=== PATIENT | male | born 1950 | race Caucasian/White ===

== ENCOUNTER 2017-03-28 10:57 | Day surgery (SDC) | payer MEDICARE, BC ==
[~2017-03-28 10:57] MED LIST: Lactated Ringers 1,000 ML IV SCH
[2017-03-28] MEDS ORDERED: Propofol 200 MG/20 ML SDV ONE (11:35)
[2017-03-28] MEDS ORDERED: fentaNYL 100 MCG/2 ML SDV ONE (11:35)
--- NOTE | 2017-03-28 14:20 | OR ---
DATE OF SURGERY: 03/28/2017 REFERRING PROVIDER: RAE Rossi PRE-OPERATIVE DIAGNOSES: Screening colonoscopy. The patient's last colonoscopy was about 10 years ago. There is no known family history of colon cancer or colon polyps. POST-OPERATIVE DIAGNOSES: 1. 2mm polyp at 70 cm, removed with cold forceps. PROCEDURE: Colonoscopy with polypectomy x1 using cold forceps. SURGEON: Baljit Merrill M.D. ANESTHESIA: Monitored anesthesia care. BOWEL PREP: Good. Refugio is a 66-year-old male who was brought to the endoscopy suite after discussing risks and benefits of the procedure. Informed consent was obtained for conscious sedation and colonoscopy with or without biopsy and/or polypectomy. We also discussed possibility of missed lesions. Pre-procedure exam was unremarkable. IV, oxygen, and monitors were placed. The patient was placed in the left lateral decubitus position. Sedation was administered and a digital rectal exam was performed which was unremarkable except for some mild enlargement of the prostate. No palpable nodules noted. Colonoscope was passed into the rectum and slowly advanced all the way to the cecum. Cecum was viewed and photographed. The colonoscope was slowly withdrawn and the mucosa was closed observed in a direct circumferential manner. The ascending colon was unremarkable. The transverse colon was remarkable for 2 mm polyp at 70 cm, removed with cold forceps. The descending colon was unremarkable. The sigmoid colon was unremarkable. Retroflexion was performed and rectal mucosa was unremarkable. Scope was removed. The patient tolerated the procedure well. The patient was monitored until that baseline status. Discharge instructions were reviewed and the patient was discharged in good condition. COMPLICATIONS: None. TOTAL TIME: 18 minutes. ESTIMATED BLOOD LOSS: Less than 1 mL. RECOMMENDATIONS/FOLLOW-UP: We will await results of pathology report to determine ideal followup interval. I would like to kindly thank REA Rossi, for this referral. DMB: 03/28/2017 13:18:47 MODL: 03/28/2017 14:11:04 /[id number]
== END 2017-03-28 14:05 | disposition home or self-care (01) ==
LOC: VM.SDS 10:57
PROVIDERS: ATTEND Family Medicine
DX: Z12.11 Encounter for screening for malignant neoplasm of colon (principal); D12.3 Benign neoplasm of transverse colon; N40.0 Benign prostatic hyperplasia without lower urinary tract symptoms; E78.5 Hyperlipidemia, unspecified; Z79.899 Other long term (current) drug therapy; Z98.890 Other specified postprocedural states
CPT/HCPCS: J2704; J3010; J7120

== ENCOUNTER 2022-08-02 10:26 | Day surgery (SDC) | payer MEDICARE, BC ==
[2022-08-02] MEDS ORDERED: fentaNYL 100 MCG/2 ML SDV ONE (11:33)
[2022-08-02] MEDS ORDERED: Propofol 200 MG/20 ML SDV ONE (11:33)
== END 2022-08-02 13:25 | disposition home or self-care (01) ==
LOC: VM.SDS 10:26
PROVIDERS: ATTEND Family Medicine
DX: Z12.11 Encounter for screening for malignant neoplasm of colon (principal); D12.7 Benign neoplasm of rectosigmoid junction; K63.5 Polyp of colon; E78.00 Pure hypercholesterolemia, unspecified; N40.1 Benign prostatic hyperplasia with lower urinary tract symptoms; N13.8 Other obstructive and reflux uropathy; Z79.899 Other long term (current) drug therapy; Z98.890 Other specified postprocedural states
CPT/HCPCS: 00811; 88305; J2704; J3010; J7120